=== PATIENT | female | born 1965 | race Caucasian/White ===

== ENCOUNTER 2018-09-20 08:02 | Day surgery (SDC) | payer OTHER ==
[~2018-09-20 08:02] MED LIST: PERCOCET 5/3251 TAB PO
== END 2018-09-20 13:25 | disposition home or self-care (01) ==
LOC: AMB-ENDOS 08:02
DX: K57.30 Diverticulosis of large intestine without perforation or abscess without bleeding (principal); K64.4 Residual hemorrhoidal skin tags